=== PATIENT | female | born 1995 | race American Indian/Alaskan Native ===

== ENCOUNTER 2017-03-30 12:42 | Outpatient (CLI) | payer OTHER ==
[2017-03-30 13:01] VITALS: BP 133/75
[2017-03-30] MEDS ORDERED: LACTATED RINGERS 500 ML IV ONE (14:13)
[2017-03-30 14:44] LABS: Bilirubin,Urine NEG (Negative); Blood,Urine NEG (Negative); Ketones,Urine NEG (Negative); Leukocyte Esterase,Urine NEG (Negative); Mucus,Urine 2+ /HPF; Nitrite,Urine NEG (Negative)
== END 2017-03-30 15:28 | disposition home or self-care (01) ==
LOC: TRG 12:42
PROVIDERS: ATTEND Obstetrics & Gynecology
DX: Z34.92 Encounter for supervision of normal pregnancy, unspecified, second trimester (principal); Z87.891 Personal history of nicotine dependence; Z3A.24 24 weeks gestation of pregnancy
CPT/HCPCS: 59025; 81001

== ENCOUNTER 2017-10-12 22:59 | Emergency (ER) | payer OTHER | END 2017-10-13 01:28 | disposition left against medical advice (07) | LOC: ED 22:59 | DX: R51 Headache (principal); Z53.21 Procedure and treatment not carried out due to patient leaving prior to being seen by health care provider ==